=== PATIENT | male | born 1960 | race Two or more races ===

== ENCOUNTER 2018-06-24 11:00 | Emergency (ER) | payer OTHER ==
[~2018-06-24] VITALS: Ht 177.8 cm; Wt 100.0 kg
[2018-06-24] MEDS ORDERED: KETOROLAC 60MG/2ML VIAL IM ONE (12:45)
[2018-06-24 15:37] VITALS: BP 112/62
== END 2018-06-24 15:47 | disposition home or self-care (01) ==
LOC: ER 11:00
DX: J01.00 Acute maxillary sinusitis, unspecified (principal); I10 Essential (primary) hypertension; E78.00 Pure hypercholesterolemia, unspecified; I25.2 Old myocardial infarction
CPT/HCPCS: 70450; 96372; 99284; J1885; Z7610